=== PATIENT | female | born 1955 | race Caucasian/White ===

== ENCOUNTER 2016-07-04 07:07 | Outpatient (CLI) | payer OTHER | END 2016-07-04 07:08 | disposition home or self-care (01) | DX: Z00.00 Encounter for general adult medical examination without abnormal findings (principal); E55.9 Vitamin D deficiency, unspecified; Z79.899 Other long term (current) drug therapy ==

== ENCOUNTER 2016-07-14 07:31 | Outpatient (CLI) | payer OTHER | END 2016-07-14 07:32 | disposition home or self-care (01) | DX: K76.0 Fatty (change of) liver, not elsewhere classified (principal) ==

== ENCOUNTER 2016-07-14 07:34 | Outpatient (CLI) | payer OTHER | END 2016-07-14 07:35 | disposition home or self-care (01) | DX: Z12.31 Encounter for screening mammogram for malignant neoplasm of breast (principal) ==

== ENCOUNTER 2016-09-23 08:17 | Outpatient (CLI) | payer OTHER | END 2016-09-23 08:18 | disposition home or self-care (01) | DX: R94.5 Abnormal results of liver function studies (principal); Z11.59 Encounter for screening for other viral diseases ==

== ENCOUNTER 2016-12-20 08:13 | Outpatient (CLI) | payer OTHER ==
[2016-12-20 11:36] LABS: BILIRUBIN,DIRECT 0.1 mg/dL (0.1-0.5); BILIRUBIN,TOTAL 1.4 mg/dL (0.2-1.0); TOTAL PROTEIN 6.9 g/dL (6.7-8.2)
== END 2016-12-20 08:14 | disposition home or self-care (01) ==
LOC: LAB.R 08:13
PROVIDERS: ATTEND Internal Medicine
DX: R94.5 Abnormal results of liver function studies (principal)
CPT/HCPCS: 80076

== ENCOUNTER 2017-05-10 07:20 | Day surgery (SDC) | payer OTHER ==
[2017-05-10] MEDS ORDERED: LACTATED RINGERS 1,000 ML IV ONE (07:43)
[2017-05-10 09:41] VITALS: BP 91/53
== END 2017-05-10 07:21 | disposition home or self-care (01) ==
LOC: SDS 07:20
PROVIDERS: ATTEND Internal Medicine
PROC: 0DBN8ZX Excision of Sigmoid Colon, Via Natural or Artificial Opening Endoscopic, Diagnostic (ICD-10-PCS; principal; 2017-05-10 08:30)
DX: Z12.11 Encounter for screening for malignant neoplasm of colon (principal); D12.5 Benign neoplasm of sigmoid colon; K64.8 Other hemorrhoids
CPT/HCPCS: 45380; 88305; J7120

== ENCOUNTER 2017-08-11 06:55 | Outpatient (CLI) | payer OTHER ==
[2017-08-11 07:47] LABS: ALBUMIN 4.6 g/dL (3.2-5.5); ALBUMIN/GLOBULIN RATIO 1.7 (1.0-2.2); ALKALINE PHOSPHATASE 125 IU/L (42-121); ALT ALANINE AMINOTRANSFERASE 107 IU/L (10-60); AST ASPARTATE AMINOTRANSFERASE 58 IU/L (10-42); BASOPHILS % (AUTO) 0.8 %; BILIRUBIN,TOTAL 1.6 mg/dL (0.2-1.0); BUN - BLOOD UREA NITROGEN 26 mg/dL (6-20); CALCIUM 9.3 mg/dL (8.5-10.3); CARBON DIOXIDE - CO2 23 mmol/L (21-32); CHLORIDE 102 mmol/L (101-111); CHOL/HDL RATIO 3.2 (<4.4); CHOLESTEROL 261 mg/dL; CREATININE 0.7 mg/dL (0.4-1.0); EOSINOPHILS # (AUTO) 0.1 10^3/uL (0.0-0.7); EOSINOPHILS % (AUTO) 3.4 %; GFR - MDRD 85 (>89); GLUCOSE 115 mg/dL (70-100); HDL CHOLESTEROL 82 mg/dL; HGB - HEMOGLOBIN 13.9 g/dL (12.0-16.0); LDL CHOLESTEROL,CALCULATED 147 mg/dL; LDL/HDL RATIO 1.8 (<4.4); LYMPHOCYTES # (AUTO) 1.2 10^3/uL (1.5-3.5); LYMPHOCYTES % (AUTO) 34.4 %; MEAN CORPUSCULAR HEMOGLOBIN 31.4 pg (27.0-31.0); MEAN CORPUSCULAR VOLUME 89.8 fL (81.0-99.0); MEAN PLATELET VOLUME 7.9 fL (7.9-10.8); MONOCYTES # (AUTO) 0.3 10^3/uL (0.0-1.0); MONOCYTES % (AUTO) 9.3 %; NEUTROPHILS # (AUTO) 1.9 10^3/uL (1.5-6.6); NEUTROPHILS % (AUTO) 52.1 %; PLT - PLATELET COUNT 213 10^3/uL (130-450); RED BLOOD COUNT 4.43 10^6/uL (4.20-5.40); RED CELL DISTRIBUTION WIDTH 12.6 % (12.0-15.0); SODIUM 135 mmol/L (135-145); TOTAL PROTEIN 7.3 g/dL (6.7-8.2); VLDL CHOLESTEROL 32 mg/dL; WHITE BLOOD COUNT 3.6 x10^3/uL (4.8-10.8)
== END 2017-08-11 06:56 | disposition home or self-care (01) ==
LOC: LAB 06:55
PROVIDERS: ATTEND Physician Assistant Medical
DX: Z00.00 Encounter for general adult medical examination without abnormal findings (principal); I48.0 Paroxysmal atrial fibrillation; E55.9 Vitamin D deficiency, unspecified; Z79.899 Other long term (current) drug therapy
CPT/HCPCS: 36415; 80053; 80061; 82306; 83721; 84443; 85025

== ENCOUNTER 2017-09-21 07:06 | Outpatient (CLI) | payer OTHER ==
[2017-09-21 07:37] LABS: ALBUMIN 4.6 g/dL (3.2-5.5); BILIRUBIN,DIRECT 0.1 mg/dL (0.1-0.5); BILIRUBIN,TOTAL 1.1 mg/dL (0.2-1.0); TOTAL PROTEIN 6.9 g/dL (6.7-8.2)
== END 2017-09-21 07:07 | disposition home or self-care (01) ==
LOC: LAB 07:06
PROVIDERS: ATTEND Physician Assistant Medical
DX: R79.89 Other specified abnormal findings of blood chemistry (principal)
CPT/HCPCS: 36415; 80076; 82977

== ENCOUNTER 2017-12-08 07:57 | Outpatient (CLI) | payer OTHER ==
[2017-12-08 13:06] LABS: ALBUMIN 4.3 g/dL (3.2-5.5); ALBUMIN/GLOBULIN RATIO 1.5 (1.0-2.2); BILIRUBIN,TOTAL 1.4 mg/dL (0.2-1.0); CALCIUM 9.3 mg/dL (8.5-10.3); CREATININE 0.6 mg/dL (0.4-1.0); TOTAL PROTEIN 7.2 g/dL (6.7-8.2)
== END 2017-12-08 23:59 | disposition home or self-care (01) ==
LOC: LAB.R 07:57
PROVIDERS: ATTEND Physician Assistant Medical
DX: R74.8 Abnormal levels of other serum enzymes (principal); R79.89 Other specified abnormal findings of blood chemistry
CPT/HCPCS: 80053; 82977

== ENCOUNTER 2017-12-14 07:13 | Outpatient (CLI) | payer OTHER ==
[2017-12-14] MEDS ORDERED: IOPAMIDOL-300 100 ML VIAL ONE ×2 (07:31→09:02)
[2017-12-14] MEDS ORDERED: IOPAMIDOL-300 50 ML VIAL ONE (07:31)
[2017-12-14] MEDS ORDERED: IOPAMIDOL-300 50 ML VIAL PO ONE (09:54)
[2017-12-14] MEDS ORDERED: IOPAMIDOL-300 100 ML VIAL IVP ONE (09:54)
--- NOTE | 2017-12-14 14:46 | CT Report ---
Procedure Date: 12/14/2017 Accession Number: [id number] / [id number] Procedure: CT - Abdomen/Pelvis W/ CPT Code: FULL RESULT: EXAM: CT ABDOMEN AND PELVIS EXAM DATE: 12/14/2017 08:45 AM. CLINICAL HISTORY: ELEVATED ALKALINE PHOSPHATASE, ELEVATED LFTS, CHRISTIE. COMPARISONS: CT 04/07/2008. TECHNIQUE: Routine helical CT imaging was performed through the abdomen and pelvis. IV contrast: ISOVUE 300 100mL. Enteric contrast: Yes. Reconstructions: Coronal and sagittal. In accordance with CT protocol optimization, one or more of the following dose reduction techniques were utilized for this exam: automated exposure control, adjustment of mA and/or KV based on patient size, or use of iterative reconstructive technique. FINDINGS: Lung Bases: Stable 2 mm left lower lobe nodule. Liver: Low attenuation appearance diffusely with no discrete mass identified. Gallbladder/Bile Ducts: Prior cholecystectomy. No biliary ductal dilation. Spleen: Unremarkable. Pancreas: Unremarkable. Adrenal Glands: Unremarkable. Kidneys: Symmetric enhancement. No hydronephrosis. No discrete mass. Possible small calcification at the upper pole left kidney. Peritoneal Cavity/Bowel: No bowel obstruction. No acute focal inflammatory change. No free air. No free fluid. No bulky adenopathy. No discrete collection. Appendix appears unremarkable. Small hiatal hernia. Pelvic Organs: Urinary bladder appears unremarkable. Uterus and adnexal structures appear unremarkable by CT assessment. Vasculature: No aneurysmal dilation. Bones: Bony demineralization. Mild degenerative changes. Other: None. IMPRESSION: 1. Low attenuation appearance of the liver diffusely with no discrete mass identified. This likely represents hepatic steatosis. 2. Prior cholecystectomy. 3. Small hiatal hernia. 4. Probable small calcification in the upper pole left kidney. RADIA
== END 2017-12-14 07:14 | disposition home or self-care (01) ==
LOC: DI 07:13
PROVIDERS: ATTEND Physician Assistant Medical
DX: K44.9 Diaphragmatic hernia without obstruction or gangrene (principal); Z90.49 Acquired absence of other specified parts of digestive tract
CPT/HCPCS: 74177; Q9967

== ENCOUNTER 2018-05-14 08:00 | Outpatient (CLI) | payer BC, OTHER ==
[2018-05-14 14:31] LABS: ALBUMIN 4.5 g/dL (3.2-5.5); BILIRUBIN,DIRECT 0.1 mg/dL (0.1-0.5); BILIRUBIN,TOTAL 1.3 mg/dL (0.2-1.0); TOTAL PROTEIN 6.9 g/dL (6.7-8.2)
== END 2018-05-14 08:01 | disposition home or self-care (01) ==
LOC: LAB.R 08:00
PROVIDERS: ATTEND Physician Assistant Medical
DX: R74.8 Abnormal levels of other serum enzymes (principal); R79.89 Other specified abnormal findings of blood chemistry
CPT/HCPCS: 80076; 82977

== ENCOUNTER 2018-05-21 16:30 | Outpatient (CLI) | payer BC | END 2018-05-21 16:31 | disposition home or self-care (01) | LOC: LAB 16:30 | PROVIDERS: ATTEND Physician Assistant Medical | DX: R74.8 Abnormal levels of other serum enzymes (principal); R79.89 Other specified abnormal findings of blood chemistry | CPT/HCPCS: 36415; 81599; 86255 ==

== ENCOUNTER 2018-07-06 14:01 | Outpatient (CLI) | payer BC ==
[2018-07-06 15:00] LABS: INR 1.1 (0.8-1.2); PT - PROTHROMBIN TIME 11.9 secs (9.9-12.6)
[2018-07-06 15:30] LABS: ALBUMIN 4.5 g/dL (3.2-5.5); BILIRUBIN,DIRECT 0.1 mg/dL (0.1-0.5); BILIRUBIN,TOTAL 0.8 mg/dL (0.2-1.0); TOTAL PROTEIN 6.8 g/dL (6.7-8.2)
[2018-07-08 14:16] LABS: CERULOPLASMIN 27 mg/dL (18-53)
[2018-07-08 21:16] LABS: LIVER KIDNEY MICROSOME AB <20.0 U
[2018-07-09 15:25] LABS: ANA SCREEN NEGATIVE (NEGATIVE)
== END 2018-07-06 14:02 | disposition home or self-care (01) ==
LOC: LAB 14:01
PROVIDERS: ATTEND Internal Medicine
DX: R79.89 Other specified abnormal findings of blood chemistry (principal)
CPT/HCPCS: 36415; 80076; 81599; 82103; 82390; 82728; 82784; 83520; 83540; 84466; 85610; 86038; 86255; 86376

== ENCOUNTER 2018-07-19 08:00 | Outpatient (CLI) | payer BC ==
[2018-07-19 16:45] LABS: CLARITY,URINE CLOUDY (CLEAR)
[2018-07-19 16:46] LABS: BILIRUBIN,URINE COLOR INTERFERENCE (NEGATIVE)
[2018-07-19 16:47] LABS: BACTERIA,URINE Many /HPF (None Seen); EPITHELIAL CELLS,UR FEW Transitional /HPF (<= Few); RBC,URINE 0-5 /HPF (0-5); SQUAMOUS EPITHELIAL CELL,UR FEW Squamous (<= Few)
== END 2018-07-19 23:59 ==
LOC: LAB.R 08:00
PROVIDERS: ATTEND Nurse Practitioner Primary Care
DX: N30.00 Acute cystitis without hematuria (principal)
CPT/HCPCS: 81001; 81003; 87086

== ENCOUNTER 2018-08-10 14:19 | Outpatient (CLI) | payer BC | END 2018-08-10 23:59 | disposition home or self-care (01) | LOC: LAB.N 14:19 | PROVIDERS: ATTEND Internal Medicine | DX: N30.00 Acute cystitis without hematuria (principal) | CPT/HCPCS: 87086 ==

== ENCOUNTER 2018-08-14 14:00 | Outpatient (CLI) | payer BC | END 2018-08-14 23:59 | disposition home or self-care (01) | LOC: LAB.R 14:00 | PROVIDERS: ATTEND Physician Assistant Medical | DX: N30.00 Acute cystitis without hematuria (principal) | CPT/HCPCS: 87086 ==

== ENCOUNTER 2018-10-06 11:16 | Outpatient (CLI) | payer BC ==
--- NOTE | 2018-10-09 10:40 | Mammography Report ---
Reason: SCREENING MAMMO Procedure Date: 10/06/2018 Accession Number: [id number] / [id number] Procedure: [facility] - Screening Mammo w/[place] CPT Code: FULL RESULT: EXAM: Screening Mammo w/[place] DATE: 10/06/2018 11:41 AM CLINICAL HISTORY: Screening examination. TECHNIQUE: (B) - Bilateral CC and MLO views were obtained. COMPARISON: 07/14/2016 PARENCHYMAL PATTERN: (A) - The breasts demonstrate scattered fibroglandular densities bilaterally. FINDINGS: Stable minor postoperative architectural distortion lateral hemisphere left breast. Unchanged benign skin lesion medial hemisphere periareolar right breast. There are no suspicious masses, calcifications, or areas of distortion. IMPRESSION: Benign findings. BI-RADS category 2. RECOMMENDATION: (ANNUAL) - Recommend routine annual screening mammography. BI-RADS CATEGORY: (2) - Benign Findings. STANDARD QUALIFYING STATEMENTS: 1. This examination was not reviewed with the aid of Computer-Aided Detection (CAD). 2. A negative or benign imaging report should not preclude biopsy if clinically suspicious findings are present. 3. Dense breasts may obscure an underlying neoplasm. 4. This examination was reviewed with the aid of 3D breast imaging (tomosynthesis).
== END 2018-10-06 11:17 | disposition home or self-care (01) ==
LOC: DI 11:16
DX: Z12.31 Encounter for screening mammogram for malignant neoplasm of breast (principal)
CPT/HCPCS: 77063; 77067